=== PATIENT | female | born 1970 | race Caucasian/White ===

== ENCOUNTER 2017-10-12 03:08 | Emergency (ER) | payer SELFPAY ==
[2017-10-12 03:28] VITALS: BMI 22.3
[2017-10-12 03:30] VITALS: BP 103/68; PULSE 88; RESP 16; TEMP 100; O2SAT 97
--- NOTE | 2017-10-12 04:57 | ED PDOC ---
HPI: General Adult Time Seen by Provider: 10/12/17 04:32 Chief Complaint (Nursing): Flu-like Symptoms History Per: Patient History/Exam Limitations: no limitations Additional Complaint(s): 46 yo F reports 3 days of fever with chills, bodyaches, cough, headache and sore throat. Otherwise: (-) SOB, (-) chest pain, (-) N/V/D, (-) abdominal pain, (-) flank pain, (-) urinary symptoms, (-) recent travel, (-) sick contacts. Past Medical History Vital Signs: Last Vital Signs Temp 100.0 F H 10/12/17 03:28 Pulse 88 10/12/17 03:28 Resp 16 10/12/17 03:28 BP 103/68 10/12/17 03:28 Pulse Ox 97 10/12/17 05:01 - Medical History PMH: No Chronic Diseases - Family History Family History: States: No Known Family Hx - Home Medications Home Medications: Ambulatory Orders Medication Instructions Recorded Guaifenesin 400 mg PO QID #20 tablet 10/12/17 Ibuprofen [Motrin Tab] 600 mg PO QID PRN #20 tab 10/12/17 - Allergies Allergies/Adverse Reactions: Allergies Allergy/AdvReac Type Severity Reaction Status Date / Time No Known Allergies Allergy Verified 10/12/17 03:28 Review of Systems Constitutional: Positive for: Fever, Chills, Malaise ENT: Negative for: Ear Pain, Nose Discharge, Throat Pain Cardiovascular: Negative for: Chest Pain, Palpitations Respiratory: Positive for: Cough. Negative for: Shortness of Breath Gastrointestinal: Negative for: Nausea, Vomiting, Abdominal Pain Genitourinary Female: Negative for: Dysuria, Frequency Musculoskeletal: Negative for: Neck Pain, Back Pain Skin: Negative for: Rash, Lesions Physical Exam - Reviewed Nursing Documentation Reviewed: Yes Vital Signs Reviewed: Yes - Physical Exam Comments: GENERAL APPEARANCE: Patient is awake, alert, oriented x 3, in no acute distress. SKIN: Warm, dry; (-) cyanosis, (-) rash. EYES: (-) conjunctival pallor, (-) scleral icterus, (-) conjunctival hemorrhage. ENMT: Mucous membranes moist. TMs: (-) erythema. Airway patent: (-) stridor. Pharynx: (-) erythema, (-) exudate. NECK: (-) tenderness, (-) stiffness, (-) meningismus, (-) lymphadenopathy. CHEST AND RESPIRATORY: (-) accessory muscle use. Lungs: (-) rales, (-) rhonchi, (-) wheezes, (-) rub; breath sounds equal bilaterally. HEART AND CARDIOVASCULAR: (-) irregularity; (-) murmur, (-) gallop, (-) rub. ABDOMEN AND GI: Soft; (-) tenderness, (-) guarding; (-) organomegaly; (-) mass ; (-) CVA tenderness. EXTREMITIES: (-) deformity; (-) cellulitis, (-) lymphangitis; (-) edema. NEURO AND PSYCH: Mental status as above; (-) focal findings. - ECG O2 Sat by Pulse Oximetry: 97 Medical Decision Making Medical Decision Making: Patient medicated with ibuprofen 600 mg PO. Dx of viral illness, possible flu d/w the patient. Based on history and exam, plan will be for outpatient follow up. Patient instructed to follow-up with pmd or the clinic in 1-2 days without fail. Advised to take medication as prescribed. Return to the emergency room at any time for any new or worsening symptoms. Patient states she fully agrees with and understands discharge instructions. States that she agrees with the plan and disposition. Verbalized and repeated discharge instructions and plan. I have given the patient opportunity to ask any additional questions. Disposition - Clinical Impression Clinical Impression: Influenza-like symptoms - Patient ED Disposition Is Patient to be Admitted: No Counseled Patient/Family Regarding: Diagnosis, Need For Followup, Rx Given - Disposition Disposition: Routine/Home Disposition Time: 05:00 Condition: STABLE Additional Instructions: Thank you for letting us take care of you today. You were treated for fever, viral illness, likely flu. The emergency medical care you received today was directed at your acute symptoms. If you were prescribed any medication, please fill it and take as directed. It may take several days for your symptoms to resolve. Return to the Emergency Department if your symptoms worsen, do not improve, or if you have any other problems. Please contact your doctor in 2 days for re-evaluation and follow up. Bring any paperwork you were given at discharge with you along with any medications you are taking to your follow up visit. Our treatment cannot replace ongoing medical care by a primary care provider (PCP) outside of the emergency department. [email or web address]. Prescriptions: Guaifenesin 400 mg PO QID #20 tablet Ibuprofen [Motrin Tab] 600 mg PO QID PRN #20 tab PRN Reason: Fever >100.4 F Instructions: Fever in Adults (ED), Influenza (ED), Viral Syndrome (ED) Forms: [employer] (Maldivian), [facility] ED School/Work Excuse Print Language: UPPER SORBIAN - PA / DESPATCHING AND RECEIVING CLERK / Resident Statement MD/DO has reviewed & agrees with the documentation as recorded.
== END 2017-10-12 05:40 | disposition home or self-care (01) ==
LOC: H.ER 03:08
DX: B34.9 Viral infection, unspecified (principal)

== ENCOUNTER 2018-08-06 23:59 | Emergency (ER) | payer SELFPAY ==
[2018-08-06 23:59] VITALS: BMI 22.3
[2018-08-07 00:16] VITALS: BP 135/77; PULSE 82; RESP 16; TEMP 97.9; O2SAT 98
--- NOTE | 2018-08-07 01:04 | ED PDOC ---
HPI: General Adult Time Seen by Provider: 08/07/18 01:01 Chief Complaint (Nursing): Abnormal Skin Integrity Chief Complaint (Provider): RASH History Per: Patient (47 Y/O FEMALE HERE FOR RASH INTERMITTENT SINCE YESTERDAY PRUIRITIC IN [place]. STATES RASH BEGAN SMALL LESIONS AND NOTES WOUND IN LEFT LEG DUE TO ITCHING . [place] [employer].) Past Medical History Reviewed: Historical Data, Nursing Documentation, Vital Signs Vital Signs: Last Vital Signs Temp 97.9 F 08/07/18 00:11 Pulse 82 08/07/18 00:11 Resp 16 08/07/18 00:11 BP 135/77 08/07/18 00:11 Pulse Ox 98 08/07/18 00:11 - Family History Family History: States: No Known Family Hx - Home Medications Home Medications: Ambulatory Orders Medication Instructions Recorded Guaifenesin 400 mg PO QID #20 tablet 10/12/17 Ibuprofen [Motrin Tab] 600 mg PO QID PRN #20 tab 10/12/17 Cephalexin [Keflex] 500 mg PO Q6 #28 capsule 08/07/18 DiphenhydrAMINE [Benadryl] 50 mg PO Q6 PRN #24 cap 08/07/18 Hydrocortisone 1% Oint [Cortizone 0.5 gm TP BID #1 tube 08/07/18 1% Oint] - Allergies Allergies/Adverse Reactions: Allergies Allergy/AdvReac Type Severity Reaction Status Date / Time No Known Allergies Allergy Verified 08/07/18 00:11 Review of Systems ROS Statement: Except As Marked, All Systems Reviewed And Found Negative Skin: Positive for: Rash Physical Exam - Reviewed Nursing Documentation Reviewed: Yes Vital Signs Reviewed: Yes - Physical Exam Appears: Positive for: Well, Non-toxic, No Acute Distress Head Exam: Positive for: ATRAUMATIC, NORMAL INSPECTION, NORMOCEPHALIC Skin: Positive for: Normal Color, Warm, Rash (SMALL PAPULAR LESIONS ON FACE/NECK. 1.5 CM ULCERATIVE LESION LEFT LATERAL LEG WITH SURROUNDING ERYTHEMA.) Eye Exam: Positive for: EOMI, Normal appearance, PERRL ENT: Positive for: Normal ENT Inspection Neck: Positive for: Normal, Painless ROM Cardiovascular/Chest: Positive for: Regular Rate, Rhythm Respiratory: Positive for: CNT, Normal Breath Sounds Gastrointestinal/Abdominal: Positive for: Normal Exam, Soft Back: Positive for: Normal Inspection Extremity: Positive for: Normal ROM Neurologic/Psych: Positive for: Alert, Oriented - ECG O2 Sat by Pulse Oximetry: 98 - Progress ED Course And Treament: BENADRYL 50 MG IM X 1 DOSE Disposition - Clinical Impression Clinical Impression: Rash and nonspecific skin eruption, Leg wound, left - Patient ED Disposition Is Patient to be Admitted: No - Disposition Disposition: Routine/Home Disposition Time: 01:06 Condition: FAIR Prescriptions: Cephalexin [Keflex] 500 mg PO Q6 #28 capsule DiphenhydrAMINE [Benadryl] 50 mg PO Q6 PRN #24 cap PRN Reason: Itching / Pruritus Hydrocortisone 1% Oint [Cortizone 1% Oint] 0.5 gm TP BID #1 tube Instructions: Skin Rash (DC) Forms: [facility] ED School/Work Excuse Print Language: DIVEHI
[2018-08-07] MEDS ORDERED: DiphenhydrAMINE 50 mg/ml Inj ONE (01:14)
[2018-08-07] MEDS: DiphenhydrAMINE 50 mg/ml Inj IM STA (01:16)
== END 2018-08-07 01:07 | disposition home or self-care (01) ==
LOC: H.ER 23:59
DX: R21 Rash and other nonspecific skin eruption (principal)
CPT/HCPCS: 96372; 99282; J1200

== ENCOUNTER 2018-10-28 23:52 | Emergency (ER) | payer SELFPAY ==
[2018-10-28 23:53] VITALS: BMI 22.3
[2018-10-28 23:59] VITALS: BP 117/73; PULSE 88; RESP 16; TEMP 98.2
[2018-10-29] MEDS ORDERED: Albuterol-Ipratrop 3 mg / 0.5 (3 ml) UD IH STA (00:58)
--- NOTE | 2018-10-29 01:01 | ED PDOC ---
HPI: CCC, URI, Sore Throat Time Seen by Provider: 10/29/18 00:05 Chief Complaint (Nursing): Cough, Cold, Congestion Chief Complaint (Provider): cough History Per: Patient, Triage Registered Nurse ([facility]/certified party demonstrator) History/Exam Limitations: no limitations Onset/Duration Of Symptoms: Days (1 week) Current Symptoms Are (Timing): Still Present Associated Symptoms: Cough. denies: Sputum, Sinus Drainage, Myalgias, Nasal Congestion Additional Complaint(s): 48 y/o female presents for evaluation of dry cough x 1 week. Denies fever, nasal congestion, nausea/vomiting, ear pain, throat pain, chest pain, shortness of breath, palpitations, abdominal pain, recent travel, sick contacts. Past Medical History Reviewed: Historical Data, Nursing Documentation, Vital Signs Vital Signs: Last Vital Signs Temp 98.2 F 10/28/18 23:57 Pulse 88 10/28/18 23:57 Resp 16 10/28/18 23:57 BP 117/73 10/28/18 23:57 Pulse Ox 96 10/28/18 23:57 - Medical History PMH: Diabetes - Surgical History Surgical History: - Family History Family History: States: No Known Family Hx - Home Medications Home Medications: Ambulatory Orders Medication Instructions Recorded Guaifenesin 400 mg PO QID #20 tablet 10/12/17 Ibuprofen [Motrin Tab] 600 mg PO QID PRN #20 tab 10/12/17 Cephalexin [Keflex] 500 mg PO Q6 #28 capsule 08/07/18 DiphenhydrAMINE [Benadryl] 50 mg PO Q6 PRN #24 cap 08/07/18 Hydrocortisone 1% Oint [Cortizone 0.5 gm TP BID #1 tube 08/07/18 1% Oint] guaiFENesin/Dextromethorphan 1 - 2 tab PO Q12 PRN #20 tab 10/29/18 [guaiFENesin/DM 600-30 mg] - Allergies Allergies/Adverse Reactions: Allergies Allergy/AdvReac Type Severity Reaction Status Date / Time No Known Allergies Allergy Verified 10/28/18 23:57 Review of Systems ROS Statement: Except As Marked, All Systems Reviewed And Found Negative Respiratory: Positive for: Cough Physical Exam - Reviewed Nursing Documentation Reviewed: Yes Vital Signs Reviewed: Yes - Physical Exam Appears: Positive for: Well, Non-toxic, No Acute Distress Head Exam: Positive for: ATRAUMATIC, NORMAL INSPECTION, NORMOCEPHALIC Skin: Positive for: Normal Color Eye Exam: Positive for: Normal appearance ENT: Positive for: Normal ENT Inspection Cardiovascular/Chest: Positive for: Regular Rate, Rhythm Respiratory: Positive for: Normal Breath Sounds Gastrointestinal/Abdominal: Positive for: Normal Exam Back: Positive for: Normal Inspection Extremity: Positive for: Normal ROM Neurologic/Psych: Positive for: Alert, Oriented (x3) - ECG O2 Sat by Pulse Oximetry: 96 - Radiology X-Ray: Viewed By Vt X-Ray Interpretation: No Acute Disease - Progress ED Course And Treament: -cxr -duoneb Patient educated on findings, discharged with rx Mucinex-DM Advised follow up PMD within 2-3 days Rest Fluids Return precautions given Disposition - Clinical Impression Clinical Impression: URI (upper respiratory infection) - Patient ED Disposition Is Patient to be Admitted: No Counseled Patient/Family Regarding: Studies Performed, Diagnosis, Need For Followup - Disposition Referrals: [facility] [Outside] Disposition: Routine/Home Disposition Time: 01:43 Condition: IMPROVED Prescriptions: guaiFENesin/Dextromethorphan [guaiFENesin/DM 600-30 mg] 1 - 2 tab PO Q12 PRN #20 tab PRN Reason: Cough And Congestion Instructions: Viral Upper Respiratory Infection, Adult (DC) Forms: [employer] (Chadian) Print Language: KHMER
[2018-10-29] MEDS ORDERED: Albuterol-Ipratrop 3 mg / 0.5 (3 ml) UD ONE (01:21)
[2018-10-29 01:49] VITALS: O2SAT 98
--- NOTE | 2018-10-29 08:35 | RAD ---
Date of service: 10/29/2018 HISTORY: cough COMPARISON: No prior. TECHNIQUE: Chest PA and lateral FINDINGS: LUNGS: No active pulmonary disease. PLEURA: No significant pleural effusion identified. No pneumothorax apparent. CARDIOVASCULAR: No aortic atherosclerotic calcification present. Normal cardiac size. No pulmonary vascular congestion. OSSEOUS STRUCTURES: No significant abnormalities. VISUALIZED UPPER ABDOMEN: Normal. OTHER FINDINGS: None. IMPRESSION: No active disease.
== END 2018-10-29 01:50 | disposition home or self-care (01) ==
LOC: H.ER 23:52
DX: J06.9 Acute upper respiratory infection, unspecified (principal); E11.9 Type 2 diabetes mellitus without complications

== ENCOUNTER 2018-12-24 14:00 | Emergency (ER) | payer OTHER ==
[2018-12-24 14:02] VITALS: BMI 22.3
[2018-12-24 14:25] VITALS: RESP 16; O2SAT 98
[2018-12-24] MEDS ORDERED: Sodium Chloride 0.9% 1,000 ML IV STA ×2 (15:44→18:25)
--- NOTE | 2018-12-24 16:15 | ED PDOC ---
Hyperglycemia/Hypoglycemia Time Seen by Provider: 12/24/18 15:10 Chief Complaint (Nursing): Dizziness/Lightheaded Chief Complaint (Provider): High Blood Sugar, Dizziness History Per: Patient, Health Coach (Lyndsay Hector #[id number]) History/Exam Limitations: no limitations Onset/Duration Of Symptoms: Days (x1) Current Symptoms Are (Timing): Still Present : The patient does not have any of the infectious symptoms listed except for those marked. Additional Complaint(s): 48 year old female presents to the ED for evaluation of weakness and dizziness in setting of known untreated diabetes. Patient states she was diagnosed two years ago but never followed up for medications. Otherwise denies fever, vomiting, diarrhea, and shortness of breath. endorses polyuria and polydipsia. PMD: none provided Past Medical History Reviewed: Historical Data, Nursing Documentation, Vital Signs Vital Signs: Last Vital Signs Temp 98.0 F 12/24/18 14:22 Pulse 91 H 12/24/18 14:22 Resp 16 12/24/18 14:22 BP 128/71 12/24/18 14:22 Pulse Ox 98 12/24/18 14:22 - Medical History PMH: Diabetes (not on meds) - Surgical History Surgical History: - Family History Family History: States: Unknown Family Hx - Social History Current smoker - smoking cessation education provided: No Alcohol: Social Drugs: Denies - Immunization History Hx Tetanus Toxoid Vaccination: No Hx Influenza Vaccination: No Hx Pneumococcal Vaccination: No - Home Medications Home Medications: Ambulatory Orders Medication Instructions Recorded metFORMIN [glucOPHAGE] 500 mg PO BID #20 tab 12/24/18 - Allergies Allergies/Adverse Reactions: Allergies Allergy/AdvReac Type Severity Reaction Status Date / Time No Known Allergies Allergy Verified 12/24/18 14:21 Review of Systems ROS Statement: Except As Marked, All Systems Reviewed And Found Negative Constitutional: Negative for: Fever Eyes: Positive for: Vision Change (blurry) Respiratory: Negative for: Shortness of Breath Gastrointestinal: Negative for: Vomiting, Diarrhea Neurological: Positive for: Dizziness Physical Exam - Reviewed Nursing Documentation Reviewed: Yes Vital Signs Reviewed: Yes - Physical Exam Appears: Positive for: No Acute Distress Head Exam: Positive for: ATRAUMATIC, NORMAL INSPECTION, NORMOCEPHALIC Skin: Positive for: Normal Color, Warm, DRY Eye Exam: Positive for: EOMI, Normal appearance, PERRL ENT: Positive for: Normal ENT Inspection Neck: Positive for: Normal, Painless ROM, Supple Cardiovascular/Chest: Positive for: Regular Rate, Rhythm Respiratory: Positive for: Normal Breath Sounds. Negative for: Respiratory Distress Gastrointestinal/Abdominal: Positive for: Normal Exam, Soft. Negative for: Tenderness Back: Positive for: Normal Inspection Extremity: Positive for: Normal ROM (all extremities). Negative for: Tenderness, Calf Tenderness, Swelling (all extremities) Neurological/Psych: Positive for: Awake, Alert, Oriented (x3). Negative for: Motor/Sensory Deficits - Laboratory Results Result Diagrams: 12/24/18 16:12 12/24/18 16:12 - ECG O2 Sat by Pulse Oximetry: 98 (RA) Pulse Ox Interpretation: Normal Medical Decision Making Medical Decision Making: Time: 1555 Initial Impression: untreated high blood sugar in setting of known diabetes diagnosis rule out DKA Initial Plan: --EKG --CMP --CBC with differential --Normal saline IV --Urine culture --Accucheck --Urinalysis --Reevaluate Initial Accucheck: 500 1825 Accucheck 623, Anion gap 12, and no ketones noted in urine. Insulin ordered to control glucose levels. 2039 Patient's glucose came down to 399. and then came down to the 200s thereafter. Educated patient on diabetes, reinforcing that she must take her Metformin and follow up with the clinic as soon as possible within 1-2 days. Stable for discharge. Scribe Attestation: Documented by Sisi Dexter, acting as a scribe for Rita Colin MD. Provider Scribe Attestation: All medical record entries made by the Scribe were at my direction and personally dictated by me. I have reviewed the chart and agree that the record accurately reflects my personal performance of the history, physical exam, medical decision making, and the department course for this patient. I have also personally directed, reviewed, and agree with the discharge instructions and disposition. Disposition - Clinical Impression Clinical Impression: Diabetes mellitus - Patient ED Disposition Is Patient to be Admitted: No Counseled Patient/Family Regarding: Studies Performed, Diagnosis, Need For Followup - Disposition [facility]Outside[facility] Disposition: Routine/Home Disposition Time: 20:42 Condition: IMPROVED Additional Instructions: seguimiento con la clnica en 2 mai debe tomeka el medicamento segn lo prescrito y seguir volver a la ED con cualquier empeoramiento o en relacin con los sntomas Prescriptions: metFORMIN [glucOPHAGE] 500 mg PO BID #20 tab Instructions: Diabetes Diet , Blood Glucose Monitoring, Diabetes Type 2 (DC) Forms: [employer] (Chinese), [employer] ([place]ayman Islander) Print Language: YORUBA
[2018-12-24 16:33] LABS: BASO % 0.7 % (0.0-2.0); EOS # 0.8 K/uL (0.0-0.7); EOS % 13.7 % (0.0-4.0); HEMOGLOBIN 13.3 g/dL (12.0-16.0); LYMPH # 2.5 K/uL (1.0-4.3); LYMPH % 40.8 % (20.0-40.0); MEAN CELL VOLUME 88.8 fl (81.0-99.0); MEAN CORPUSCULAR HEMOGLOBIN 30.1 pg (27.0-31.0); MEAN PLATELET VOLUME 9.2 fl (7.2-11.7); MONO # 0.5 K/uL (0.0-0.8); MONO % 8.9 % (0.0-10.0); NEUT # 2.2 K/uL (1.8-7.0); NEUT % 35.9 % (50.0-75.0); NRBC % 0.1 % (0.0-0.0); RBC 4.4 Mil/uL (3.80-5.20); WHITE BLOOD COUNT 6.2 K/uL (4.8-10.8)
[2018-12-24 16:34] LABS: ALB/GLOB RATIO 1.3 (1.0-2.1); ALBUMIN 4.3 g/dL (3.5-5.0); ALT/SGPT 29 U/L (9-52); AST/SGOT 24 U/L (14-36); BLOOD UREA NITROGEN 21 mg/dl (7-17); CALCIUM 9.7 mg/dL (8.4-10.2); GFR NON-AFRICAN AMERICAN > 60
[2018-12-24 16:58] LABS: SQUAMOUS EPITHIAL 4 /hpf (0-5); URINE BACTERIA OCC (<OCC); URINE BILIRUBIN NEGATIVE (NEGATIVE); URINE BLOOD NEGATIVE (NEGATIVE); URINE CLARITY SLIGHTY-CLOUDY (Clear); URINE COLOR STRAW (YELLOW); URINE GLUCOSE (UA) >=500 mg/dL (NEGATIVE); URINE LEUKOCYTE ESTERASE NEG Leu/uL (Negative); URINE PROTEIN NEGATIVE (NEGATIVE); URINE UROBILINOGEN 0.2-1.0 mg/dL (0.2-1.0)
[2018-12-24] MEDS ORDERED: Insulin Regular 100 units/ml SC STA (18:24)
[2018-12-24] MEDS ORDERED: Insulin Regular 100 units/ml ONE (18:47)
[2018-12-25 05:15] VITALS: BP 126/55; PULSE 79; TEMP 98.2
== END 2018-12-24 21:04 | disposition home or self-care (01) ==
LOC: H.ER 14:00
DX: E11.65 Type 2 diabetes mellitus with hyperglycemia (principal); Z79.4 Long term (current) use of insulin
CPT/HCPCS: 80053; 81003; 82948; 85025; 87086; 96360; 96361; 99285; J7030